=== PATIENT | female | born 2005 | race Caucasian/White ===

== ENCOUNTER 2025-03-30 20:22 | Emergency (ER) | payer OTHER, SELFPAY ==
[2025-03-30 20:25] VITALS: BP 136/92
[2025-03-30 21:17] LABS: ALT (SGPT) 12 U/L (0-35); AST (SGOT) 28 U/L (14-36); Albumin 4.6 g/dl (3.5-5.0); Alkaline Phosphatase 78 U/L (38-126); Blood Urea Nitrogen 6 mg/dl (7-17); Calcium 9.4 mg/dl (8.4-10.2); Carbon Dioxide 22 mmol/L (22-30); Chloride 108 mmol/L (98-107); Glucose 97 mg/dl (70-99); Potassium 4.2 mmol/L (3.5-5.1); Sodium 138 mmol/L (135-145); Total Bilirubin 0.5 mg/dl (0.2-1.3); Total Protein 8.1 g/dl (6.3-8.2); eGFR > 60.00
[2025-03-30 23:49] VITALS: BP 119/77
[2025-03-31 00:13] LABS: % Basophils 0.4 % (0-2); % Eosinophils 1.6 % (0-6); % Immature Granulocytes 0.2 % (0-0.5); % Lymphocytes 14.5 % (20.5-51.1); % Monocytes 7.5 % (1.7-9.3); % Neutrophils 75.8 % (42.2-75.2); Absolute Eosinophils 0.2 10^3/uL (0-0.7); Absolute Lymphocytes 1.4 10^3/uL (1.2-3.4); Absolute Monocytes 0.7 10^3/uL (0.1-0.6); Absolute Neutrophils 7.1 10^3/uL (1.4-6.5); Hematocrit 33.1 % (37.0-47.0); Hemoglobin 10.2 g/dL (12.0-16.0); Mean Corp Hgb Conc. 30.8 g/dL (33.0-37.0); Mean Corpuscular Volume 74.5 fL (81.0-99.0); Mean Platelet Volume 10.8 fL (7.4-10.4); Nucleated Red Blood Cells % 0 %; Platelet Count 308 10^3/uL (130-400); Red Blood Cell Count 4.44 10^6/uL (4.20-5.40); Red Cell Dist. Width 15.9 % (11.5-14.5); White Blood Cell Count 9.4 10^3/uL (4.8-10.8)
--- NOTE | 2025-03-31 01:16 | ED.GENMED ---
History of Present Illness
General
Chief Complaint: Throat Problem
Source: patient
Exam Limitations: none
Time Seen by Provider: 03/31/25 00:28
Nursing documentation reviewed up to this point in time: agreed with
History of Present Illness
History of Present Illness:
Pleasant 20-year-old female presents to the emergency department with right-sided neck and tonsil pain. She states that she felt a bulging on the right side of her neck that has been progressively worsening for the last few days. She does state
that today while at work, she felt intense pain and felt liquid in her mouth which she determined was pus and blood she states that she still has pain but it is not as severe. She reports a similar occurrence approximately 2 years ago at an outside
hospital. She had a tonsillectomy had a peritonsillar abscess drained at that point. Denies any difficulty breathing or swallowing., Chills, nausea or vomiting.
Review of Systems
Review of Systems
Allergies reviewed?: Yes
All Other Systems: ROS reviewed and negative except as documented in HPI and ROS
Constitutional: Reports no symptoms
EENT: Reports sore throat and mouth pain
Respiratory: Reports no symptoms
Cardiac: Reports no symptoms
ABD/GI: Reports no symptoms
: Reports no symptoms
Musculoskeletal: Reports no symptoms
Skin: Reports no symptoms
Neurological: Reports no symptoms
Endocrine: Reports no symptoms
Hematologic/Lymphatic: Reports no symptoms
Psychiatric: Reports no symptoms
Phy Exam
General Physical Exam
General Presentation: well appearing and no apparent distress
General Skin: warm and dry
General Habitus: normal
General Mental: alert
General Hydration: appears well hydrated
ENT Exam
ENT Exam: EOMI, pharynx normal, neck supple and normocephalic
Eye Exam
Eye Exam: PERRL, cornea clear and conjunctiva normal
Cardiovascular Exam
Cardiovascular Exam: regular rate/rhythm, no edema, no murmur and normal peripheral pulses
Pulmonary Exam
Pulmonary Exam: lungs clear, no respiratory distress, no rales, no crackles, no rhonchi, no stridor, no wheezing and no cough
Gastrointestinal Exam
Gastrointestinal Exam: normal bowel sounds, non tender, soft, no organomegaly, no pulsatile mass and non distended
Neurological Exam
Neurological Exam: alert, oriented x3, no motor deficits and speech normal
Musculoskeletal Exam
Musculoskeletal Exam: full ROM and no edema
Skin Exam
Skin Exam: normal color, warm/dry, no rash and no petechia
Psychiatric Exam
Psychiatric Exam: normal mood/affect
Course
Orders/Labs/Results
Orders:
Orders
03/30/25 20:45
CMP [Comprehensive Metabolic Panel] Urgent
HCG, Serum Qualitative Screen Urgent
Comment: ADD ON
03/30/25 23:55
Complete Blood Count/With Diff Urgent
03/31/25 00:27
CT Neck With Iv Contrast Urgent
Comment:
Reason For Exam: right sided neck pain
03/31/25 00:47
Add On- LAB Urgent
Tests Added?: serum hcg
03/31/25 02:37
Rapid Strep Group A Urgent
ALBERT Source: Throat/Pharynx
Specimen Description:
Date Specimen was Collected: 03/31/25
Time Specimen was Collected: 02:34
03/31/25 02:38
Amoxicillin 875 mg/Clav 125 mg [Augmentin 875 mg/125 mg] 1 tablet PO NOW STA
Abnormal Lab Results
03/30/25 03/30/25
20:45 23:55
Hgb 10.2 L g/dL
(12.0-16.0)
Hct 33.1 L %
(37.0-47.0)
MCV 74.5 L fL
(81.0-99.0)
MCH 23.0 L pg
(27.0-31.0)
MCHC 30.8 L g/dL
(33.0-37.0)
RDW 15.9 H %
(11.5-14.5)
MPV 10.8 H fL
(7.4-10.4)
Absolute Neuts (auto) 7.1 H 10^3/uL
(1.4-6.5)
Absolute Monos (auto) 0.7 H 10^3/uL
(0.1-0.6)
Neutrophils % 75.8 H %
(42.2-75.2)
Lymphocytes % 14.5 L %
(20.5-51.1)
Chloride 108 H mmol/L
(98-107)
BUN 6 L mg/dl
(7-17)
03/30/25 23:55
03/30/25 20:45
Vital Signs
Initial and Last Documented VS:
Initial Vital Signs
Temp Pulse Resp BP Pulse Ox
98.6 F 97 18 136/92 99
03/30/25 20:25 03/30/25 20:25 03/30/25 20:25 03/30/25 20:25 03/30/25 20:25
Last Documented Vital Signs
Temp Pulse Resp BP Pulse Ox
98.6 F 75 20 134/75 99
03/30/25 20:25 03/31/25 02:00 03/31/25 02:00 03/31/25 02:00 03/30/25 20:25
*Critical Care Note
Total Time (30-74mins, 75-104mins- exclusive of procedures): Not Applicable
Update Note
Update Note:
CT NECK W/ CONTRAST
IMPRESSION:
Asymmetrically enlarged right tonsillar soft tissues. No definite evidence of abscess. Subtle hypodensity in the deep portion of the tonsil could reflect developing phlegmon.
Mild hypoenhancement of the nasopharyngeal soft tissues. This could reflect extension of pharyngitis.
Unremarkable appearance of the orbits and globes.
Paranasal sinuses are clear.
Prinicipal arteries and veins of the neck and skull base appear widely patent without focal lesion.
No acute c-spine fracutre or traumatic malalignment.
Lung apices are clear.
2:30 AM-spoke with Dr. Morales, ENT who reviewed the CT scan results and recommended antibiotics with close follow-up in his office this morning.
ED Attending Note
-
Portions of this chart may have been created with voice recognition software.� Occasional wrong word or��sound alike� substitutions may have occurred due to the inherent limitations of voice recognition software.
Discharge Plan
Departure
Patient Disposition: Home (Routine Discharge)
Date of Disposition: 03/31/25
Time of Disposition: 02:32
Patient with high blood pressure during this ER visit?: Yes
Discharge Problem:
Throat pain in adult
Instructions: Sore Throat, Adult (DC), BLOOD PRESSURE
Prescriptions:
New
amoxicillin-pot clavulanate 875-125 mg tablet
1 tab PO BID Qty: 20 0RF
Referrals:
Gavin Hirsch MD [Family Provider] -
Asaf Morales MD [Active] - Next open appointment (Call this morning to schedule an appointment for today)
Interventions
Interventions:
*Risk Screen - Suicide Last Done: 03/30/25 20:25
*General Assessment Last Done: 03/30/25 20:25
*Neglect/Abuse Screening Last Done: 03/31/25 00:00
*ED- Fall Risk Assessment Last Done: 03/30/25 20:25
*ED COVID-19 Vaccine History Last Done: 03/30/25 20:25
*Nursing Disposition Last Done: 03/31/25 02:46
ED-EENT Assessment Last Done: 03/31/25 00:00
ED- Pulmonary Assessment Last Done: 03/31/25 00:00
Discharge Date and Time
Discharge Date/Time: 03/31/25 02:48
Print Language: LATVIAN
[2025-03-31 01:20] LABS: HCG, Serum Qualitative Screen Negative
[2025-03-31 02:00] VITALS: BP 134/75
[2025-03-31] MEDS: AUGMENTIN 875 MG/125 MG 1 TABLET PO (02:42)
== END 2025-03-31 02:48 | disposition home or self-care (01) ==
LOC: EMR 20:22
PROVIDERS: Student in an Organized Health Care Education/Training Program; EMERGENCY PHYSICIAN Student in an Organized Health Care Education/Training Program; FAMILY PHYSICIAN Pediatrics
DX: R07.0 Pain in throat (principal); M54.2 Cervicalgia
CPT/HCPCS: 99284; 70491; 80053; 84703; 85025; 87070; 87880; Q9967

== ENCOUNTER 2025-05-01 06:16 | Day surgery (SDC) | payer OTHER, SELFPAY ==
[2025-05-01] VITALS (10 sets, daily range): BP systolic 95–131; BP diastolic 50–76; BMI 20.8
[2025-05-01] MEDS: NORMOSOL-R/PLASMALYTE-A 1000 IV (09:07)
== END 2025-05-01 14:31 | disposition home or self-care (01) ==
LOC: SDS 06:16
PROVIDERS: ATTENDING PHYSICIAN Otolaryngology
DX: J35.01 Chronic tonsillitis (principal); R07.0 Pain in throat
CPT/HCPCS: 42826; 88304

== ENCOUNTER 2025-09-25 02:29 | Emergency (ER) | payer OTHER, SELFPAY ==
[2025-09-25 02:34] VITALS: BP 114/73
[2025-09-25 03:23] VITALS: BMI 20.3
[2025-09-25 05:01] VITALS: BP 105/59
--- NOTE | 2025-09-25 05:13 | ED.GENMED ---
History of Present Illness
General
Chief Complaint: Eye Problems
Source: patient
Exam Limitations: none
Time Seen by Provider: 09/25/25 04:40
Nursing documentation reviewed up to this point in time: agreed with
History of Present Illness
History of Present Illness:
see MDM
Review of Systems
Review of Systems
Allergies reviewed?: Yes
All Other Systems: Not applicable
Phy Exam
Physical Exam
Physical Exam:
GENERAL: Alert , in no apparent distress
EYE: pupils equal and reactive
conjunctiva injected L eye
mild photophobia
vision not corrected, pt doesnt have glasses
fluroscein stain settles around cornea but no obvious ulceration; it appears the sclera is inflamed
NECK: Supple
NEUROLOGICAL: Alert and oriented, no focal neuro deficits
SKIN: Warm and dry, skin intact.
MUSCULOSKELETAL: No edema, well perfused.
PSYCH: Normal and appropriate interaction.
no SI
no halluciantions
Course
Orders/Labs/Results
Orders:
Orders
09/25/25 02:46
1:1 Observation - Suicide/ Violent Behavior As Directed
09/25/25 02:55
Crisis Consult Urgent
Reason for Consult: suidical thoughts
09/25/25 04:39
HCG, Urine Qualitative Screen Urgent
Date Specimen was Collected: 09/25/25
Time Specimen was Collected: 04:24
Urine Drug Abuse Screen Urgent
Date Specimen was Collected: 09/25/25
Time Specimen was Collected: 04:24
09/25/25 05:57
Add On- LAB Urgent
Tests Added?: urine hcg
09/25/25 08:00
Ofloxacin [Ocuflox] See Dose Instructions OPHTH QID
Abnormal Lab Results
09/25/25
04:39
U Marijuana (THC) Screen Positive H
(Negative)
Vital Signs
Initial and Last Documented VS:
Initial Vital Signs
Temp Pulse Resp BP Pulse Ox
36.9 C 80 20 114/73 97
09/25/25 02:34 09/25/25 02:34 09/25/25 02:34 09/25/25 02:34 09/25/25 02:34
Last Documented Vital Signs
Temp Pulse Resp BP Pulse Ox
36.9 C 77 18 117/72 100
09/25/25 02:34 09/25/25 09:46 09/25/25 09:46 09/25/25 09:46 09/25/25 09:46
MDM/Problems Addressed
Differential Diagnosis Includes:
see MDM
MDM/Problems Addressed:
Note:
CHIEF COMPLAINT(S)
Loss of vision and sensation of foreign body in the left eye.
HISTORY OF PRESENT ILLNESS
The patient 20 y/o female , presented to the emergency department with the primary complaint of not being able to see out of her left eye, which felt as though a contact lens was stuck. She reported feeling a gritty sensation in the corner of her
left eye, exacerbated by attempted removal. The patient attempted to remove the contact lens herself with assistance from her mother and sister; however, they could not locate the contact lens. She reported her left eye has been more problematic,
often becoming irritated compared to her right eye. Following unsuccessful removal attempts, she presented to the hospital due to persistent symptoms. The contact lens had been worn for several months despite being designed for bi-weekly
replacement, potentially due to financial constraints and lack of transportation to obtain a replacement. The patient described the left eye feeling poked and experienced significant tearing
Additionally, she has experienced emotional distress related to family dynamics, particularly due to parental focus on her brothers drug issues, impacting her emotional well-being. She had a recent emotional breakdown and expressed feelings of
depression but had no suicidal ideation.
she has never had inpatient psych admission before
[employer]
The patient described financial difficulties resulting in her inability to obtain a replacement for contact lenses. She is temporarily without transportation due to her car being out of service. The patient also mentioned family stress, with the
family focusing more on a sibling with drug-related issues. This environment has contributed to her emotional distress.
REVIEW OF SYSTEMS
- Visual: Blurred vision in the left eye, sensation of foreign body.
- Oculomotor: Gritty sensation, tearing, and poking pain in left eye.
- Emotional: Feelings of depression, recently exacerbated by family stress and lack of transportation.
PHYSICAL EXAM
see above
PLAN
- Prescribe antibiotic eye drops to treat inflammation and potential corneal abrasion prophylactically.
- Advise against wearing contact lenses until the eye has healed.
- Recommend follow-up with an groundskeeper once discharged if symptoms persist.
- Encourage having glasses brought by family to compensate for lack of contact lenses.
201 for depression screening
awaiting bed placement
DIFFERENTIAL DIAGNOSIS
The Differential Diagnosis includes, in no particular order and is not limited to:
1. Corneal abrasion
2. Conjunctivitis
3. Contact lens-associated keratitis
4. Subconjunctival hemorrhage
5. Foreign body in the eye
6. Corneal ulcer
7. Uveitis
8. Dry eye syndrome
9. Chronic conjunctivitis due to contact lens overuse
10. Visual disturbances secondary to psychosomatic stress
20 y/o F
L eye irritation today after trying to get contact out
she has been overwearing them but not sleeping in them for a month
she didn't thinkshe got it out so she kept trying and then her mom and sister tried as well
pt started having redness, tearing, and fb sensation cornrer of L eye
conjucntiva inflamed
no obvious abrasion on naked eye
no tearing
no fb
flipped lids
fluroscein no uptake
will treat with drops to empiracaly cover abrasion
see by crisis and there is a bed for her for depression
no SI
201
*Pulse Oximetry
SaO2: 100
Oxygen Mode of Delivery: Room air
Patient hypoxic: no (97)
*Critical Care Note
Total Time (30-74mins, 75-104mins- exclusive of procedures): Not Applicable
ED Attending Note
-
Portions of this chart may have been created with voice recognition software.� Occasional wrong word or��sound alike� substitutions may have occurred due to the inherent limitations of voice recognition software.
Discharge Plan
Departure
Patient Disposition: Psych Facility
Discharge Problem:
Traumatic conjunctivitis
Instructions: How to Use Eye Drops
Prescriptions:
New
ciprofloxacin HCl 0.3 % drops
2 drp ophthalmic (eye) Q6H 5 Days Qty: 5 0RF
No Action
Azo Cranberry
2 tab PO DAILY
levonorgestrel-ethinyl estrad [Aviane] 0.1-20 mg-mcg Tablet
1 tab PO DAILY
Activity Restrictions/Additional Instructions:
THERE WAS NO OBVIOUS SCRATCH BUT YOU MAY AHVE A SUBTLE SCRATCH ON YOUR CORNEA
APPLY THE ANTIBOITIC DROPS DIRECTED FOR 7 DAYS
SEE AN EYE DOCTOR
USE YOUR GLASSES UNTIL THIS HEALS
RETURN FOR ANY CONCERNS
YOU ARE VOLUNTARILY SEEKING TREATMENT FOR DEPRESSION
RETURN FOR ANY CONCERNS.
Interventions
Interventions:
*Risk Screen - Suicide Last Done: 09/25/25 02:38
*General Assessment Last Done: 09/25/25 02:38
*Neglect/Abuse Screening Last Done: 09/25/25 02:38
*ED- Fall Risk Assessment Last Done: 09/25/25 02:38
*ED COVID-19 Vaccine History Last Done: 09/25/25 02:38
*ED Influenza Vaccine History Last Done: 09/25/25 02:38
*Nursing Disposition Last Done: 09/25/25 09:53
Discharge Date and Time
Discharge Date/Time: 09/25/25 09:56
Print Language: BRAZILIAN
[2025-09-25 06:45] LABS: HCG, Urine Qualitative Screen Negative
[2025-09-25] MEDS: OCUFLOX 1 DROP OPHTH (09:44)
[2025-09-25 09:46] VITALS: BP 117/72
== END 2025-09-25 09:56 ==
LOC: EMR 02:29
PROVIDERS: EMERGENCY PHYSICIAN Emergency Medicine
DX: H10.89 Other conjunctivitis (principal); Z63.8 Other specified problems related to primary support group; Z59.869 Financial insecurity, unspecified
CPT/HCPCS: 99285; 80306; 81025